=== PATIENT | male | born 1995 | race Caucasian/White ===

== ENCOUNTER 2017-04-17 20:53 | Emergency (ER) | payer OTHER ==
[2017-04-17 21:18] VITALS: BP 111/63
--- NOTE | 2017-04-17 21:38 | UC ---
Throat Pain/Nasal Dick HPI - HPI Summary HPI Summary: Pt presents with cough, sore throat, and chills for the last 2 days. He has not been taking anything for his symptoms. Has felt feverish, but has not taken his temperature. He is a student at [employer] and says that many people have been sick with the flu. Denies SOB, chest pain, abdominal pain, n/v/d/c. - History of Current Complaint Chief Complaint: UCRespiratory Stated Complaint: SORE THROAT, FEVER Hx Obtained From: Patient Onset/Duration: Gradual Onset Severity: Severe Pain Intensity: 7 Pain Scale Used: 0-10 Numeric Cough: Nonproductive - Allergies/Home Medications Allergies/Adverse Reactions: Allergies Allergy/AdvReac Type Severity Reaction Status Date / Time Codeine Allergy Severe Anaphylatic Verified 04/17/17 21:09 Shock Eggs or Egg-derived Products Allergy Severe Anaphylatic Verified 04/17/17 21:55 Shock Milk-related Compounds Allergy Severe Anaphylatic Verified 04/17/17 21:55 Shock Home Medications: Home Medications Ibuprofen TAB* [Advil TAB*] 3 tab PO TID PRN 04/17/17 [History Confirmed ] PMH/Surg Hx/FS Hx/Imm Hx Previously Healthy: Yes - Surgical History Surgical History: Yes Surgery Procedure, Year, and Place: 2012 - RIGHT ELBOW SURGERY - Family History Known Family History: Positive: None - Social History Occupation: Student Lives: Dormitory/Roommates Alcohol Use: Rare Substance Use Type: None Smoking Status (MU): Never Smoked Tobacco Review of Systems Constitutional: Fever, Fatigue Skin: Negative Eyes: Negative ENT: Sore Throat Respiratory: Cough Cardiovascular: Negative Gastrointestinal: Negative All Other Systems Reviewed And Are Negative: Yes Physical Exam Triage Information Reviewed: Yes Appearance: Well-Appearing, No Pain Distress, Well-Nourished Vital Signs: Initial Vital Signs Temp 100.7 F 04/17/17 21:11 Pulse 80 04/17/17 21:11 Resp 16 04/17/17 21:11 BP 111/63 04/17/17 21:11 Pulse Ox 98 04/17/17 21:11 Vital Signs Reviewed: Yes Eyes: Positive: Conjunctiva Clear. Negative: Conjunctiva Inflamed, Discharge ENT: Positive: Hearing grossly normal, Pharyngeal erythema, TMs normal, Uvula midline. Negative: Nasal congestion, Nasal drainage, TM bulging, TM dull, TM red, Tonsillar swelling, Tonsillar exudate, Hoarse voice, Sinus tenderness Neck: Positive: Supple, Nontender, No Lymphadenopathy Respiratory: Positive: Chest non-tender, Lungs clear, Normal breath sounds, No respiratory distress, No accessory muscle use Cardiovascular: Positive: RRR, No Murmur, Pulses Normal Neurological: Positive: Alert Psychological: Positive: Age Appropriate Behavior Skin: Negative: rashes Throat Pain/Nasal Course/Dx - Course Course Of Treatment: POC strep neg. sinusitis. Cough - Differential Dx/Diagnosis Provider Diagnoses: Sinusitis. Cough Discharge - Discharge Plan Condition: Stable Disposition: HOME Prescriptions: Amoxicillin PO (*) [Amoxicillin 500 MG CAP*] 500 mg PO Q12H #20 cap Patient Education Materials: Sinusitis (ED) [facility] - Additional Instructions: If you develop a fever, shortness of breath, chest pain, new or worsening symptoms - please call your PCP or go to the ED.
[2017-04-17] MEDS ORDERED: Amoxicillin PO (*) 500 MG CAP PO ONE (21:44)
== END 2017-04-17 21:59 | disposition home or self-care (01) ==
LOC: UCEAST 20:53
DX: J32.9 Chronic sinusitis, unspecified (principal); R05 Cough; Z88.5 Allergy status to narcotic agent
CPT/HCPCS: 87651; 99202; A9270-GY; G0463